=== PATIENT | male | born 1960 | race Two or more races ===

== ENCOUNTER 2024-04-22 13:08 | Emergency (ER) | payer MEDICAID, SELFPAY ==
[2024-04-22 13:18] VITALS: BP 132/80; PULSE 96; RESP 20; O2SAT 95; BMI 29.0
--- NOTE | 2024-04-22 14:07 | PD.EDEPIST ---
ED Epistaxis RME/HPI General Chief complaint: Epistaxis/Nasal Foreign Body Stated complaint: BLOODY NOSE OFF AND ON X3 DAYS Time Seen by Provider: 04/22/24 13:25 Arrival date/time: 04/22/24 13:08 This is a 63-year-old male that comes in with complaints of nosebleed. Patient states it has been going on and off for the last 3 days. Patient denies any use of blood thinners. Patient denies past medical history. Related Data Home Medications ?Medication ?Instructions ?Recorded ?Confirmed hydrochlorothiazide 25 mg tablet 25 mg PO QDAY 02/22/19 02/27/19 hydrocodone 5 mg-acetaminophen 325 1 tab PO PRN PRN Pain 02/22/19 02/27/19 mg tablet losartan 100 mg tablet 1 tab PO QDAY 02/22/19 02/27/19 prochlorperazine maleate 5 mg 1 tab PO QDAY 03/01/19 03/01/19 tablet (Compazine) sucralfate 1 gram tablet (Carafate) 1 tab PO Q6H 03/01/19 03/01/19 Previous Rx's ?Medication ?Instructions ?Recorded cefuroxime axetil 250 mg tablet 500 mg (2 x 250 mg) PO BID #40 tabs 03/07/19 guaifenesin 100 mg/5 mL oral liquid 100 mg (5 mL) PO Q4H PRN Cough 03/07/19 #100 mL cephalexin 500 mg capsule (Keflex) 500 mg PO BID #14 caps 03/23/19 Allergies Allergy/AdvReac Type Severity Reaction Status Date / Time No Known Allergies Allergy Verified 04/22/24 13:12 Course Orders Category Date Time Status Oxymetazoline Gama Menno 0.05% [Afrin Nasal [place]] Med 04/22/24 14:07 Discontinued See Dose Instructions NASAL X1 ONE Vital Signs Vital signs: Vital Signs Pulse Rate 96 04/22/24 13:18 Respiratory Rate 20 04/22/24 13:18 Blood Pressure 132/80 H 04/22/24 13:18 Pulse Oximetry (%) 95 04/22/24 13:18 Oxygen Delivery Method Room Air 04/22/24 13:18 Epistaxis MDM Narrative MDM Narrative:: Afrin sprayed in each nostril. Direct pressure held for 2 minutes. No more bleeding noted. Patient tolerated well. Patient was using herbal medicine that he would spray in his nose to help clear his sinuses. I explained to him that this can cause him to have nosebleeds. Patient told to follow-up with primary provider in 1 to 2 days. Come back to the emergency room symptoms change or worsen. Medications / Prescriptions Medication administrations:: Medication Administration History Discontinued Medications Oxymetazoline HCl (Oxymetazoline Gama Menno 0.05% 15 Ml Btl) 0 spray NASAL X1 ONE Stop: 04/22/24 14:08 Last Admin: 04/22/24 14:21 Dose: 2 spray Documented By: MOO Discharge Plan Plan Patient Disposition: HOME (Self Care) Patient condition on transfer: Stable Prescriptions/Referrals Prescriptions/Med Rec: No Action hydrocodone-acetaminophen 5-325 mg tablet 1 tab PO PRN PRN (Reason: Pain) Patient Comments: TAKE 1 TABLET BY MOUTH EVERY 6 HOURS NEEDED FOR PAIN hydrochlorothiazide 25 mg tablet 25 mg PO QDAY losartan 100 mg tablet 1 tab PO QDAY Patient Comments: TAKE 1 TABLET BY MOUTH EVERY DAY prochlorperazine maleate [Compazine] 5 mg Tablet 1 tab PO QDAY sucralfate [Carafate] 1 gram Tablet 1 tab PO Q6H cefuroxime axetil 250 mg Tablet 500 mg PO BID Qty: 40 0RF guaifenesin 100 mg/5 mL Liquid 100 mg PO Q4H PRN (Reason: Cough) Qty: 100 0RF cephalexin [Keflex] 500 mg capsule 500 mg PO BID Qty: 14 0RF Problem List Clinical Impression: Epistaxis Patient/Caregiver Discharge Instructions Discharge Activity: activity as tolerated Education Materials: ED Epistaxis (Adult) Additional Instructions: Follow up with primary provider in 1-2 days. Come back to ED if symptoms change or worsen. If bleeding happens again hold direct pressure for 2 minutes as instructed. Print Language: Yoruba Stand Alone Forms: Princess Award Info., Patient Portal Info Letter PA/RING ATTACHER Supervising Physician PA/RING ATTACHER Supervising Physician: elmer
[2024-04-22] MEDS: OXYMETAZOLINE NAS SPRY 0.05% 15 ML BTL NASAL (14:21)
== END 2024-04-22 19:55 | disposition home or self-care (01) ==
PROVIDERS: Emergency Provider Family Medicine
DX: R04.0 Epistaxis (principal)
CPT/HCPCS: 99282; A9270